=== PATIENT | female | born 1970 | race Caucasian/White ===

== ENCOUNTER 2024-11-16 07:53 | Day surgery (SDC) | payer BC ==
[2024-11-15 13:18] VITALS: BMI 23.0
[2024-11-16] MEDS: IV FLUID CONTINUATION 1,000 ML IV ONE (08:02)
[2024-11-16 08:15] VITALS: TEMP 98.3
[2024-11-16 08:22] LABS: Glucose,Whole Blood 157 mg/dL (70-110)
[2024-11-16] MEDS: LACTATED RINGERS 1,000 ML IV SCH (08:23)
[2024-11-16] MEDS ORDERED: PROPOFOL 10 MG/ML 20 ML VIAL IV ONE (09:08)
[2024-11-16] MEDS ORDERED: LIDOCAINE 1% INJ 10MG/ML (20 ML MDV) ONE (09:08)
--- NOTE | 2024-11-16 09:19 | P.PCN ---
Date of Procedure: 11/16/24 Procedure(s) Performed: BRIEF HISTORY: Patient is a 54-year-old, pleasant, white female scheduled for an upper endoscopy for further evaluation of intermittent nausea vomiting for the last few months duration. She was started on Mounjaro a few months ago but she did not notice any worsening of symptoms. She has these episodes usually once or twice a month.. PROCEDURE PERFORMED: Esophagogastroduodenoscopy with biopsy. PREOPERATIVE DIAGNOSIS: Chronic intermittent nausea vomiting. IV sedation per anesthesia. PROCEDURE: After informed consent was obtained, the patient was brought into the endoscopy unit. IV sedation was administered by Anesthesia under continuous monitoring. Initially the Olympus GIF-140 video endoscope was inserted into the mouth. Esophagus intubated without any difficulty. It was gradually advanced into the stomach and duodenum and carefully examined. The bulb and the second part of the duodenum appeared normal. Biopsies were done from the duodenum rule out celiac disease. The scope at this time was withdrawn to the stomach, adequately insufflated with air, and upon careful examination, mucosa of the antrum, gastritis and biopsies were done from this area. Mucosa body, cardia and the fundus appeared normal. The scope was then withdrawn into the esophagus. The GE junction was located at 39 cm from the incisors. The esophagus appeared normal. Biopsies were done from the distal esophagus there were no erosions or ulcerations seen and the patient tolerated the procedure well. IMPRESSION: 1. Mild antral gastritis. 2. Small hiatal hernia. RECOMMENDATIONS: The findings of this examination were discussed with the patient as well as her family. She was advised to follow-up with the biopsy results. Continue with current medications and follow antireflux measures..
[2024-11-16 09:56] VITALS: BP 166/86; PULSE 85; RESP 16
== END 2024-11-16 10:17 | disposition home or self-care (01) ==
LOC: ORWHC2ENDO 07:53
PROVIDERS: ATTEND Internal Medicine Gastroenterology
DX: K29.50 Unspecified chronic gastritis without bleeding (principal); K44.9 Diaphragmatic hernia without obstruction or gangrene
CPT/HCPCS: 43239; J2003; J2704; 88305